=== PATIENT | male | born 1970 | race African-American/Black ===

== ENCOUNTER 2019-04-16 04:06 | Inpatient (IN) ==
[2019-04-16] MEDS ORDERED: DIPH/TET/ACEL PERT BOOSTER VACCINE 0.5 ML VIAL IM ONE (04:10)
[2019-04-16] MEDS ORDERED: ceFAZolin 2,000 MG in SODIUM CHLORIDE 0.9% 100 ML IV STA (04:12)
[2019-04-16] MEDS ORDERED: SODIUM CHLORIDE 0.9% 2,000 ML IV STA (04:13)
[2019-04-16 04:25] LABS: Basophils # 0.1 10*3/uL (0.0-0.2); Basophils % 0.6 % (0.0-0.8); Eosinophils # 0.2 10*3/uL (0.0-0.87); Eosinophils % 1.7 % (0.00-10.9); Hematocrit 37.3 VOL% (42.0-52.0); Hemoglobin 11.6 GM/DL (14.0-18.0); Immature Granulocytes % 0.4 %; Immature Granulocytes Absolute 0.04 #; Lymphocytes % 29.4 % (21.2-54.2); Mean Corpuscular HGB Conc 31.1 GM/DL (32-36); Mean Corpuscular Volume 78.4 FL (87-102); Mean Platelet Volume 9.3 FL (9.6-12.0); Neutrophils % 59.9 % (38.7-73.9); Platelet Count 380 T/CUMM (130-400); Red Blood Count 4.76 MC/CUMM (3.8-5.5); Red Cell Distribution Width 14.7 % (9.3-17.3); White Blood Count 10.2 T/CUMM (4-12)
[2019-04-16 04:48] LABS: Albumin 2.9 G/DL (3.4-5.0); Bilirubin,Total 0.6 MG/DL (0.2-1.0); Calcium 8.8 MG/DL (8.5-10.1); Osmolality,Calculated 279.3 MOS/KG (273-304); Total Protein 7.7 G/DL (6.4-8.3)
[2019-04-16] MEDS ORDERED: SODIUM CHLORIDE 0.9% 1,000 ML IV PRN (08:54)
[2019-04-16] MEDS ORDERED: ACETAMINOPHEN 325 MG TABLET PO PRN (08:56)
[2019-04-16] MEDS ORDERED: ONDANSETRON 4 MG/2 ML VIAL IV PRN (08:56)
[2019-04-16] MEDS ORDERED: PANTOPRAZOLE 40 MG TABLET PO SCH (09:00)
[2019-04-16] MEDS ORDERED: LACTATED RINGERS 1,000 ML IV SCH (09:00)
[2019-04-16] MEDS ORDERED: ceFAZolin 1,000 MG in SYRINGE 1 EACH IV ONE (09:07)
[2019-04-16] MEDS ORDERED: LIDOCAINE 1%/EPI INJ 20 ML VIAL ONE (09:50)
[2019-04-16] MEDS ORDERED: BUPIVACAINE MPF 0.25% /EPI 30 ML VIAL ONE (09:50)
[2019-04-16] MEDS ORDERED: THIAMINE INJ 100 MG, FOLIC ACID INJ 1 MG, MULTIVITAMIN INJ 10 ML in SODIUM CHLORIDE 0.9... IV ONE (10:00)
[2019-04-16] MEDS ORDERED: ceFAZolin 1,000 MG VIAL ONE (11:14)
[2019-04-16] MEDS ORDERED: VANCOMYCIN 1,000 MG VIAL ONE ×2 (11:52→12:07)
[2019-04-16] MEDS ORDERED: PROPOFOL 1,000 MG/100 ML BOTTLE IV SCH (13:30)
[2019-04-16] MEDS ORDERED: PHENYLEPHRINE DRIP 20 MG/250 ML PREMIX IV ONE (13:37)
[2019-04-16] MEDS ORDERED: EPINEPHrine 1 MG/ML VIAL ONE (13:38)
[2019-04-16] MEDS ORDERED: MIDAZOLAM 2 MG/2 ML VIAL ONE (13:38)
[2019-04-16] MEDS ORDERED: MIDAZOLAM 10 MG/2 ML VIAL ONE (13:38)
[2019-04-16] MEDS ORDERED: fentaNYL 100 MCG/2 ML VIAL ONE (13:38)
[2019-04-16] MEDS ORDERED: LACTATED RINGERS 1,000 ML IV ONE (13:39)
[2019-04-16] MEDS ORDERED: ROCURONIUM 100 MG/10 ML VIAL IV ONE (13:39)
[2019-04-16] MEDS ORDERED: KETAMINE 500 MG/10 ML VIAL ONE (13:39)
[2019-04-16 14:00] LABS: Apearance,Urine CLEAR (Clear); Bilirubin,Urine Negative (Negative); Blood, Urine Negative (Negative); Glucose,Urine (UA) Negative (Negative); Ketones,Urine 5 mg/dL (Negative); Mucus,Urine Occasional /LPF (Occasional); Nitrite,Urine Negative (Negative); Protein,Urine Negative; RBC,Urine 1 /HPF (0-4); Urine Color Yellow (Yellow); Urine Specific Gravity 1.026 (1.001-1.035); WBC,Urine 1 /HPF (0-6)
[2019-04-16] MEDS: MORPHINE 4 MG/1 ML VIAL IV PRN ×2 (14:15→19:12)
[2019-04-16] MEDS: DEXTROSE 5% NACL 0.9% 1,000 ML IV SCH ×2 (15:03→23:08)
[2019-04-16 15:23] LABS: Hematocrit 39.8 VOL% (42.0-52.0); Hemoglobin 12.5 GM/DL (14.0-18.0)
[2019-04-16] MEDS: ENALAPRIL 2.5 MG/2 ML VIAL IV SCH ×2 (16:30→22:14)
[2019-04-16] MEDS ORDERED: NITROPRUSSIDE 100 MG in DEXTROSE 5% 246 ML IV PRN (16:30)
[2019-04-16] MEDS ORDERED: POTASSIUM CHLORIDE INJ 50 MEQ in SODIUM CHLORIDE 0.9% 500 ML IV ONE (17:00)
[2019-04-16 17:01] LABS: Barbiturates Screen,Urine Negative (Negative); Benzodiazepines Screen,Urine Positive (Negative); Cannabinoid Screen,Urine Positive (Negative); Opiate Screen,Urine Negative (Negative); Phencyclidine Screen,Urine Negative (Negative)
[2019-04-16 18:04] LABS: ABG Base Excess -0.3 MMOL/L (-2.5-2.5); ABG HCO3 24.2 MMOL/L (20-26); ABG Oxygen Saturation 99.2 % (95-100); ABG PCO2 40.2 MM HG (35-48); ABG PH 7.394 (7.35-7.45); ABG TCO2 22.2 MMOL/L (23-27)
[2019-04-16] MEDS: ceFAZolin 2,000 MG in PREMIX 1 EACH IV SCH (19:18)
[2019-04-16] MEDS: chlordiazePOXIDE 10 MG CAPSULE PO SCH (20:13)
[2019-04-16 21:24] LABS: Hematocrit 31.1 VOL% (42.0-52.0)
[2019-04-17] MEDS: MORPHINE 4 MG/1 ML VIAL IV PRN ×3 (01:02→14:22)
[2019-04-17] MEDS: ceFAZolin 2,000 MG in PREMIX 1 EACH IV SCH (03:01)
[2019-04-17 04:36] LABS: ABG Base Excess -0.6 MMOL/L (-2.5-2.5); ABG HCO3 23.9 MMOL/L (20-26); ABG Oxygen Saturation 98.9 % (95-100); ABG PCO2 38.9 MM HG (35-48); ABG PH 7.407 (7.35-7.45); ABG PO2 166.9 MM HG (80-95); ABG TCO2 25.1 MMOL/L (23-27); Glucose Heart Surgery 155 MG/DL (74-106); Hemoglobin Heart Surgery 11.2 G/DL (14.0-18.0); Potassium Heart/CVR 3.8 MMOL/L (3.5-5.1)
[2019-04-17] MEDS: ENALAPRIL 2.5 MG/2 ML VIAL IV SCH (04:36)
[2019-04-17 04:47] LABS: Basophils # 0.1 10*3/uL (0.0-0.2); Basophils % 0.3 % (0.0-0.8); Eosinophils % 0.1 % (0.00-10.9); Hematocrit 32.7 VOL% (42.0-52.0); Hemoglobin 10.4 GM/DL (14.0-18.0); Immature Granulocytes % 0.6 %; Immature Granulocytes Absolute 0.09 #; Lymphocytes # 1.5 10*3/uL (1.4-4.0); Lymphocytes % 9.9 % (21.2-54.2); Mean Corpuscular HGB Conc 31.8 GM/DL (32-36); Mean Corpuscular Volume 76.2 FL (87-102); Mean Platelet Volume 9.6 FL (9.6-12.0); Monocytes % 6.3 % (1.7-12.7); Neutrophils % 82.8 % (38.7-73.9); Platelet Count 349 T/CUMM (130-400); Red Blood Count 4.29 MC/CUMM (3.8-5.5); Red Cell Distribution Width 14.5 % (9.3-17.3); White Blood Count 15.2 T/CUMM (4-12)
[2019-04-17 05:14] LABS: Albumin 2.7 G/DL (3.4-5.0); Bilirubin,Total 0.6 MG/DL (0.2-1.0); Calcium 7.5 MG/DL (8.5-10.1); Total Protein 6.9 G/DL (6.4-8.3)
[2019-04-17] MEDS: POTASSIUM CHLORIDE RIDER 10 MEQ in PREMIX 1 EACH IV PRN ×2 (05:27→06:27)
[2019-04-17] MEDS ORDERED: LANSOPRAZOLE ODT 30 MG TABLET PER TUBE SCH (09:00)
[2019-04-17] MEDS ORDERED: MULTIVITAMIN (CENTRUM) TABLET PO SCH (09:00)
[2019-04-17] MEDS: THIAMINE 100 MG TABLET PO SCH (09:25)
[2019-04-17] MEDS: FOLIC ACID 0.4 MG TABLET PO SCH (09:26)
[2019-04-17] MEDS: chlordiazePOXIDE 10 MG CAPSULE PO SCH ×3 (09:26→20:20)
[2019-04-17] MEDS: DEXTROSE 5% NACL 0.9% 1,000 ML IV SCH (09:55)
[2019-04-17] MEDS ORDERED: LEVOFLOXACIN INJ 750 MG in PREMIX 1 EACH IV SCH (12:00)
[2019-04-17] MEDS ORDERED: CALCIUM CARBONATE CHEW 500 MG TABLET PO PRN (22:50)
[2019-04-17] MEDS: ALUMINUM/MAGNES/SIMETH MAX STR 30 ML UDCUP PO PRN (22:54)
[2019-04-18 05:58] LABS: Basophils % 0.2 % (0.0-0.8); Eosinophils % 0.1 % (0.00-10.9); Hematocrit 34.7 VOL% (42.0-52.0); Hemoglobin 11.2 GM/DL (14.0-18.0); Immature Granulocytes % 0.7 %; Lymphocytes # 1.4 10*3/uL (1.4-4.0); Lymphocytes % 9.8 % (21.2-54.2); Mean Corpuscular HGB Conc 32.3 GM/DL (32-36); Mean Corpuscular Volume 75.4 FL (87-102); Mean Platelet Volume 10.1 FL (9.6-12.0); Monocytes % 6.1 % (1.7-12.7); Neutrophils % 83.1 % (38.7-73.9); Platelet Count 376 T/CUMM (130-400); Red Cell Distribution Width 14.6 % (9.3-17.3); White Blood Count 14.7 T/CUMM (4-12)
[2019-04-18 06:35] LABS: Albumin 2.5 G/DL (3.4-5.0); Bilirubin,Total 1.1 MG/DL (0.2-1.0); Calcium 8.5 MG/DL (8.5-10.1); Osmolality,Calculated 274.5 MOS/KG (273-304); Total Protein 7.1 G/DL (6.4-8.3)
[2019-04-18] MEDS: MORPHINE 4 MG/1 ML VIAL IV PRN (09:05)
[2019-04-18] MEDS: FOLIC ACID 0.4 MG TABLET PO SCH (09:07)
[2019-04-18] MEDS: chlordiazePOXIDE 10 MG CAPSULE PO SCH ×3 (09:07→20:39)
[2019-04-18] MEDS: PANTOPRAZOLE 40 MG TABLET PO SCH (09:07)
[2019-04-18] MEDS: THIAMINE 100 MG TABLET PO SCH (09:07)
[2019-04-18] MEDS ORDERED: KETOROLAC 30 MG/1 ML VIAL IV ONE (10:48)
[2019-04-18] MEDS: KETOROLAC 15 MG/1 ML VIAL IV PRN (18:15)
[2019-04-18] MEDS: ALBUTEROL/IPRATROPIUM 3 ML NEB RESP TX SCH (19:10)
[2019-04-18] MEDS: ALUMINUM/MAGNES/SIMETH MAX STR 30 ML UDCUP PO PRN (22:58)
[2019-04-19] MEDS: ALBUTEROL/IPRATROPIUM 3 ML NEB RESP TX SCH ×4 (01:21→19:22)
[2019-04-19] MEDS: KETOROLAC 15 MG/1 ML VIAL IV PRN ×2 (04:06→22:33)
[2019-04-19] MEDS: ALUMINUM/MAGNES/SIMETH MAX STR 30 ML UDCUP PO PRN (04:07)
[2019-04-19 05:20] LABS: Basophils % 0.4 % (0.0-0.8); Eosinophils # 0.1 10*3/uL (0.0-0.87); Eosinophils % 1.2 % (0.00-10.9); Hematocrit 31.8 VOL% (42.0-52.0); Hemoglobin 10.5 GM/DL (14.0-18.0); Immature Granulocytes % 0.4 %; Immature Granulocytes Absolute 0.04 #; Lymphocytes # 1.7 10*3/uL (1.4-4.0); Lymphocytes % 16.7 % (21.2-54.2); Mean Corpuscular Volume 74.8 FL (87-102); Mean Platelet Volume 9.8 FL (9.6-12.0); Neutrophils % 74.3 % (38.7-73.9); Platelet Count 363 T/CUMM (130-400); Red Blood Count 4.25 MC/CUMM (3.8-5.5); Red Cell Distribution Width 14.5 % (9.3-17.3); White Blood Count 10.3 T/CUMM (4-12)
[2019-04-19 05:29] LABS: Calcium 8.1 MG/DL (8.5-10.1); Osmolality,Calculated 276.5 MOS/KG (273-304)
[2019-04-19] MEDS ORDERED: LACTULOSE 20 GM/30 ML UDCUP PO PRN (08:39)
[2019-04-19] MEDS: PANTOPRAZOLE 40 MG TABLET PO SCH (09:10)
[2019-04-19] MEDS: FOLIC ACID 0.4 MG TABLET PO SCH (09:10)
[2019-04-19] MEDS: THIAMINE 100 MG TABLET PO SCH (09:10)
[2019-04-19] MEDS: chlordiazePOXIDE 10 MG CAPSULE PO SCH ×3 (09:10→21:30)
[2019-04-19] MEDS: POTASSIUM CHLORIDE RIDER 10 MEQ in PREMIX 1 EACH IV PRN ×2 (09:23→22:50)
[2019-04-20] MEDS: ALBUTEROL/IPRATROPIUM 3 ML NEB RESP TX SCH ×4 (00:53→19:34)
[2019-04-20 06:21] LABS: Basophils % 0.4 % (0.0-0.8); Eosinophils # 0.2 10*3/uL (0.0-0.87); Eosinophils % 2.3 % (0.00-10.9); Hematocrit 30.9 VOL% (42.0-52.0); Hemoglobin 9.9 GM/DL (14.0-18.0); Immature Granulocytes % 0.4 %; Immature Granulocytes Absolute 0.03 #; Lymphocytes # 1.7 10*3/uL (1.4-4.0); Lymphocytes % 20.9 % (21.2-54.2); Mean Corpuscular Volume 75.4 FL (87-102); Mean Platelet Volume 9.3 FL (9.6-12.0); Monocytes % 6.3 % (1.7-12.7); Neutrophils % 69.7 % (38.7-73.9); Platelet Count 385 T/CUMM (130-400); Red Cell Distribution Width 14.5 % (9.3-17.3); White Blood Count 8.1 T/CUMM (4-12)
[2019-04-20 06:41] LABS: Calcium 8.1 MG/DL (8.5-10.1); Osmolality,Calculated 277.4 MOS/KG (273-304)
[2019-04-20] MEDS: chlordiazePOXIDE 10 MG CAPSULE PO SCH ×3 (09:00→20:39)
[2019-04-20] MEDS: PANTOPRAZOLE 40 MG TABLET PO SCH (09:00)
[2019-04-20] MEDS: FOLIC ACID 0.4 MG TABLET PO SCH (09:00)
[2019-04-20] MEDS: THIAMINE 100 MG TABLET PO SCH (09:00)
[2019-04-20] MEDS: KETOROLAC 15 MG/1 ML VIAL IV PRN (09:05)
[2019-04-20] MEDS ORDERED: POTASSIUM CHLORIDE 20 MEQ TABLET PO ONE (10:53)
[2019-04-20] MEDS: ALUMINUM/MAGNES/SIMETH MAX STR 30 ML UDCUP PO PRN (20:49)
[2019-04-21] MEDS: ALBUTEROL/IPRATROPIUM 3 ML NEB RESP TX SCH ×4 (00:40→19:43)
[2019-04-21 04:49] LABS: Basophils % 0.4 % (0.0-0.8); Eosinophils # 0.2 10*3/uL (0.0-0.87); Eosinophils % 2.4 % (0.00-10.9); Hematocrit 27.8 VOL% (42.0-52.0); Hemoglobin 9.2 GM/DL (14.0-18.0); Immature Granulocytes % 1.1 %; Immature Granulocytes Absolute 0.09 #; Lymphocytes # 1.9 10*3/uL (1.4-4.0); Lymphocytes % 23.9 % (21.2-54.2); Mean Corpuscular HGB Conc 33.1 GM/DL (32-36); Mean Corpuscular Volume 74.5 FL (87-102); Mean Platelet Volume 9.8 FL (9.6-12.0); Monocytes % 7.2 % (1.7-12.7); Platelet Count 412 T/CUMM (130-400); Red Blood Count 3.73 MC/CUMM (3.8-5.5); Red Cell Distribution Width 14.2 % (9.3-17.3)
[2019-04-21 05:14] LABS: Osmolality,Calculated 280.1 MOS/KG (273-304)
[2019-04-21] MEDS: KETOROLAC 15 MG/1 ML VIAL IV PRN (07:59)
[2019-04-21] MEDS: PANTOPRAZOLE 40 MG TABLET PO SCH (08:54)
[2019-04-21] MEDS: FOLIC ACID 0.4 MG TABLET PO SCH (08:54)
[2019-04-21] MEDS: THIAMINE 100 MG TABLET PO SCH (08:54)
[2019-04-21] MEDS: chlordiazePOXIDE 10 MG CAPSULE PO SCH ×3 (08:54→20:29)
[2019-04-21] MEDS: POTASSIUM CHLORIDE RIDER 10 MEQ in PREMIX 1 EACH IV PRN ×3 (09:50→21:50)
[2019-04-22] MEDS: ALBUTEROL/IPRATROPIUM 3 ML NEB RESP TX SCH ×2 (00:53→07:20)
[2019-04-22] MEDS: POTASSIUM CHLORIDE RIDER 10 MEQ in PREMIX 1 EACH IV PRN (01:21)
[2019-04-22 03:36] LABS: Hematocrit 27.9 VOL% (42.0-52.0)
[2019-04-22] MEDS: FOLIC ACID 0.4 MG TABLET PO SCH (09:54)
[2019-04-22] MEDS: chlordiazePOXIDE 10 MG CAPSULE PO SCH (09:54)
[2019-04-22] MEDS: PANTOPRAZOLE 40 MG TABLET PO SCH (09:54)
[2019-04-22] MEDS: THIAMINE 100 MG TABLET PO SCH (09:54)
[2019-04-22 12:26] VITALS: BP 117/91
== END 2019-04-22 15:57 | disposition home or self-care (01) | DRG 958 ==
LOC: EDUNIT# → EDBD → N.ED 04:06 → N.EDINP 08:55 → N.CC 09:51 → N.CVR 16:12 → N.TELES 04-17 14:43
PROVIDERS: ADMIT Surgery; ATTEND Surgery

== ENCOUNTER 2020-02-09 19:20 | Inpatient (IN) ==
[2020-02-09] MEDS ORDERED: SODIUM CHLORIDE 0.9% 500 ML IV STA (19:34)
[2020-02-09] MEDS ORDERED: METOPROLOL TARTRATE 5 MG/5 ML VIAL IV STA (19:34)
[2020-02-09] MEDS ORDERED: ONDANSETRON 4 MG/2 ML VIAL IV STA (19:34)
[2020-02-09 20:04] LABS: Basophils % 0.2 % (0.0-0.8); Hematocrit 44.9 VOL% (42.0-52.0); Hemoglobin 15.5 GM/DL (14.0-18.0); Immature Granulocytes % 0.6 %; Lymphocytes # 0.9 10*3/uL (1.4-4.0); Lymphocytes % 4.9 % (21.2-54.2); Mean Corpuscular HGB Conc 34.5 GM/DL (32-36); Mean Corpuscular Volume 74.1 FL (87-102); Mean Platelet Volume 9.2 FL (9.6-12.0); Monocytes % 4.3 % (1.7-12.7); Platelet Count 377 T/CUMM (130-400); Red Blood Count 6.06 MC/CUMM (3.8-5.5); Red Cell Distribution Width 13.7 % (9.3-17.3)
[2020-02-09] MEDS ORDERED: cefTRIAXone 1,000 MG in SODIUM CHLORIDE 0.9% 100 ML IV STA (20:09)
[2020-02-09 20:25] LABS: Albumin 3.8 G/DL (3.4-5.0); Bilirubin,Total 1.6 MG/DL (0.2-1.0); Calcium 9.1 MG/DL (8.5-10.1); Osmolality,Calculated 268.4 MOS/KG (273-304); Total Protein 8.2 G/DL (6.4-8.3)
[2020-02-09 20:56] LABS: CKMB % 0.7 %; Troponin I < 0.015 NG/ML (0.00-0.045)
[2020-02-09 21:12] LABS: Apearance,Urine CLEAR (Clear); Bilirubin,Urine Negative (Negative); Blood, Urine Negative (Negative); Glucose,Urine (UA) Negative (Negative); Ketones,Urine 20 mg/dL (Negative); Mucus,Urine Occasional /LPF (Occasional); Nitrite,Urine Negative (Negative); Protein,Urine 30 MG/DL; RBC,Urine 3 /HPF (0-4); Squamous Epithelial Cell,Urine Occasional /HPF (0-10); Urine Color Yellow (Yellow); Urine Specific Gravity 1.041 (1.001-1.035); Urine Urobilinogen < 2.0 EU/DL (0.2-1.0); WBC,Urine 3 /HPF (0-6)
[2020-02-09 21:23] LABS: Band Neutrophils 1 % (0-10); Lymphocytes 7 % (20-55); Platelet Estimate Normal; Segmented Neutrophils 87 % (50-85); Total Cells Counted 100
[2020-02-09 21:24] LABS: Microcytosis Slight
[2020-02-09] MEDS ORDERED: hydrALAZINE 20 MG/1 ML VIAL IV STA (22:13)
[2020-02-09 22:18] LABS: Ferritin 173.9 ng/ml (26-388)
[2020-02-09] MEDS ORDERED: PROMETHAZINE INJ 12.5 MG in SODIUM CHLORIDE 0.9% 50 ML IV STA (22:26)
[2020-02-09] MEDS ORDERED: SODIUM CHLORIDE 0.9% 1,000 ML IV STA (22:27)
[2020-02-09] MEDS ORDERED: PROMETHAZINE 25 MG/1 ML VIAL ONE (22:28)
[2020-02-09 22:52] LABS: Barbiturates Screen,Urine Negative (Negative); Benzodiazepines Screen,Urine Negative (Negative); Cannabinoid Screen,Urine Positive (Negative); Opiate Screen,Urine Negative (Negative); Phencyclidine Screen,Urine Negative (Negative)
[2020-02-09] MEDS ORDERED: ALUMINUM/MAGNES/SIMETH MAX STR 30 ML UDCUP PO PRN (22:58)
[2020-02-09] MEDS ORDERED: guaiFENesin/DM ER 600-30 MG TABLET PO PRN (22:58)
[2020-02-09] MEDS ORDERED: NICOTINE 21 MG/24 HR PATCH TRANSDERM PRN (22:58)
[2020-02-09] MEDS ORDERED: DEXTROSE 50% 25 GM/50 ML SYRINGE IV PRN (22:58)
[2020-02-09] MEDS ORDERED: diphenhydrAMINE CAP 25 MG CAPSULE PO PRN (22:58)
[2020-02-09] MEDS ORDERED: GLUCAGON 1 MG VIAL IM PRN (22:58)
[2020-02-09] MEDS ORDERED: ONDANSETRON 4 MG/2 ML VIAL IV PRN (22:58)
[2020-02-10] MEDS ORDERED: METOCLOPRAMIDE 10 MG/2 ML VIAL IV ONE (00:23)
[2020-02-10] MEDS ORDERED: metroNIDAZOLE 500 MG/100 ML PREMIX IV ONE (01:27)
[2020-02-10] MEDS: PANTOPRAZOLE 40 MG VIAL IV SCH ×3 (01:30→21:25)
[2020-02-10] MEDS: metroNIDAZOLE INJ 500 MG in PREMIX 1 EACH IV SCH ×2 (01:35→13:24)
[2020-02-10] MEDS: ACETAMINOPHEN 325 MG TABLET PO PRN ×2 (01:39→21:30)
[2020-02-10] MEDS: CIPROFLOXACIN INJ 400 MG in PREMIX 1 EACH IV SCH ×2 (04:07→14:32)
[2020-02-10] MEDS: SODIUM CHLORIDE 0.9% 1,000 ML IV SCH ×3 (06:57→18:39)
[2020-02-10] MEDS ORDERED: HYDROmorphone 2 MG/1 ML VIAL IV PRN (10:13)
[2020-02-10] MEDS ORDERED: PROMETHAZINE INJ 12.5 MG in SODIUM CHLORIDE 0.9% 50 ML IV PRN (10:13)
[2020-02-10 10:36] LABS: Basophils % 0.2 % (0.0-0.8); Hematocrit 49.3 VOL% (42.0-52.0); Hemoglobin 16.5 GM/DL (14.0-18.0); Immature Granulocytes % 0.4 %; Immature Granulocytes Absolute 0.07 #; Lymphocytes # 1.1 10*3/uL (1.4-4.0); Lymphocytes % 6.5 % (21.2-54.2); Mean Corpuscular HGB Conc 33.5 GM/DL (32-36); Mean Corpuscular Volume 75.7 FL (87-102); Mean Platelet Volume 10.1 FL (9.6-12.0); Monocytes % 4.3 % (1.7-12.7); Neutrophils % 88.6 % (38.7-73.9); Platelet Count 418 T/CUMM (130-400); Red Blood Count 6.51 MC/CUMM (3.8-5.5); Red Cell Distribution Width 14.6 % (9.3-17.3); White Blood Count 16.4 T/CUMM (4-12)
[2020-02-10 10:58] LABS: Albumin 3.8 G/DL (3.4-5.0); Bilirubin,Total 1.2 MG/DL (0.2-1.0); Calcium 9.4 MG/DL (8.5-10.1); Osmolality,Calculated 265.4 MOS/KG (273-304); Total Protein 8.5 G/DL (6.4-8.3)
[2020-02-10 11:01] LABS: Troponin I < 0.015 NG/ML (0.00-0.045)
[2020-02-10] MEDS: hydrALAZINE 20 MG/1 ML VIAL IV PRN (21:45)
[2020-02-11] MEDS: metroNIDAZOLE INJ 500 MG in PREMIX 1 EACH IV SCH ×3 (00:45→23:30)
[2020-02-11] MEDS: CIPROFLOXACIN INJ 400 MG in PREMIX 1 EACH IV SCH ×2 (01:40→14:14)
[2020-02-11] MEDS: SODIUM CHLORIDE 0.9% 1,000 ML IV SCH ×3 (02:08→21:05)
[2020-02-11] MEDS: ACETAMINOPHEN 325 MG TABLET PO PRN (05:35)
[2020-02-11] MEDS: hydrALAZINE 20 MG/1 ML VIAL IV PRN (05:35)
[2020-02-11] MEDS: PANTOPRAZOLE 40 MG VIAL IV SCH ×2 (08:42→23:03)
[2020-02-12] MEDS: CIPROFLOXACIN INJ 400 MG in PREMIX 1 EACH IV SCH ×2 (01:05→13:31)
[2020-02-12] MEDS: SODIUM CHLORIDE 0.9% 1,000 ML IV SCH (06:00)
[2020-02-12] MEDS: PANTOPRAZOLE 40 MG VIAL IV SCH (08:00)
[2020-02-12] MEDS: metroNIDAZOLE INJ 500 MG in PREMIX 1 EACH IV SCH (11:44)
[2020-02-12 13:04] VITALS: BP 117/80
== END 2020-02-12 17:05 | disposition home or self-care (01) | DRG 389 ==
LOC: EDBD → EDUNIT# → N.ED 19:20 → N.EDINP 22:58 → N.2E 02-10 06:55
PROVIDERS: ADMIT Internal Medicine Geriatric Medicine; ATTEND Internal Medicine Geriatric Medicine